=== PATIENT | female | born 1985 | race Caucasian/White ===

== ENCOUNTER 2018-03-23 19:06 | Emergency (ER) | payer MEDICAID ==
[~2018-03-23] VITALS: Ht 172.7 cm; Wt 50.0 kg
[2018-03-23 19:10] VITALS: BP 122/85
== END 2018-03-23 20:53 | disposition left against medical advice (07) ==
LOC: ER 19:06
DX: R10.2 Pelvic and perineal pain (principal); Z53.21 Procedure and treatment not carried out due to patient leaving prior to being seen by health care provider